=== PATIENT | male | born 1985 | race Caucasian/White ===

== ENCOUNTER 2019-04-18 15:20 | Outpatient (CLI) | END 2019-04-18 15:21 | disposition home or self-care (01) | LOC: RHC-LAB 15:20 | PROVIDERS: ATTEND Nurse Practitioner Family | DX: Z76.89 Persons encountering health services in other specified circumstances (principal); Z00.00 Encounter for general adult medical examination without abnormal findings | CPT/HCPCS: 36415; 80053; 80061; 84443; 85025 ==

== ENCOUNTER 2019-06-29 14:31 | Outpatient (CLI) | END 2019-06-29 14:32 | disposition home or self-care (01) | LOC: CAR 14:31 → EEVIPCON 19:00 | PROVIDERS: ATTEND Psychiatry & Neurology Sleep Medicine | DX: G47.33 Obstructive sleep apnea (adult) (pediatric) (principal); R06.83 Snoring | CPT/HCPCS: 95810 ==